=== PATIENT | male | born 1995 | race Caucasian/White ===

== ENCOUNTER 2021-03-16 04:38 | Emergency (ER) | payer OTHER ==
[2021-03-16 04:57] VITALS: BP 110/76; PULSE 82; TEMP 97.6; BMI 23.7
[2021-03-16] MEDS ORDERED: AMOX TR/POT CLAV 875MG/125MG TABLETS (FP) PO ONE (05:39)
== END 2021-03-16 06:11 | disposition home or self-care (01) ==
LOC: JER 04:38
DX: S61.451A Open bite of right hand, initial encounter (principal)
CPT/HCPCS: 99283-25

== ENCOUNTER 2021-03-18 15:17 | Emergency (ER) | payer OTHER ==
[2021-03-18 15:35] VITALS: BP 98/61; PULSE 68; TEMP 98.6; BMI 24.3
== END 2021-03-18 16:00 | disposition home or self-care (01) ==
LOC: JER 15:17
DX: R50.9 Fever, unspecified (principal); R05.1 Acute cough; M79.10 Myalgia, unspecified site; Z11.52 Encounter for screening for COVID-19
CPT/HCPCS: 99283-25; C9803; U0003; U0005

== ENCOUNTER 2021-09-09 13:30 | Emergency (ER) | payer OTHER ==
[2021-09-09 13:37] VITALS: BP 105/56; PULSE 72; TEMP 97.8; BMI 24.3
[2021-09-09 15:18] LABS: URINE APPEARANCE CLEAR; URINE BILIRUBIN NEGATIVE (NEGATIVE); URINE COLOR YELLOW; URINE GLUCOSE (UA) NEGATIVE (NEGATIVE); URINE KETONE NEGATIVE (NEGATIVE); URINE LEUK ESTERASE NEGATIVE (NEGATIVE); URINE NITRITE NEGATIVE (NEGATIVE); URINE PROTEIN NEGATIVE (NEGATIVE)
== END 2021-09-09 14:40 | disposition home or self-care (01) ==
LOC: JERFT 13:30
DX: Z20.2 Contact with and (suspected) exposure to infections with a predominantly sexual mode of transmission (principal)
CPT/HCPCS: 36415; 81003; 87086; 87491; 87591; 99283-25

== ENCOUNTER 2023-06-18 22:47 | Emergency (ER) | payer OTHER ==
[2023-06-18 23:08] VITALS: BP 100/63; PULSE 62; RESP 20; TEMP 98.1; BMI 23.6
== END 2023-06-19 00:53 | disposition home or self-care (01) ==
LOC: JER 22:47
DX: M25.571 Pain in right ankle and joints of right foot (principal); S93.401A Sprain of unspecified ligament of right ankle, initial encounter; X50.1XXA Overexertion from prolonged static or awkward postures, initial encounter; Y93.67 Activity, basketball
CPT/HCPCS: 73610-TC-RT-FY; 99283-25